=== PATIENT | male | born 1960 | race Caucasian/White ===

== ENCOUNTER 2018-07-22 08:58 | Emergency (ER) | payer MEDICAID, OTHER ==
[~2018-07-22] VITALS: Ht 165.1 cm; Wt 90.7 kg
--- OUTSIDE RECORDS SUMMARY | 2018-07-22 09:04 | XMS REPORT ---
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 Problem Proteinuria 791.0 Active Problem Unspecified orchitis and epididymitis 604.90 Active Problem Unspecified disorder of male genital organs 608.9 Active Problem Other and unspecified hyperlipidemia 272.4 Active Problem Unspecified hypertrophic and atrophic condition of skin 701.9 Active Problem Unspecified disorder of the teeth and supporting structures 525.9 Active Problem Routine general medical examination at health care facility V70.0 Active Problem Other chronic pain 338.29 Active Problem Pain in joint, shoulder region 719.41 Active Problem Gout, unspecified 274.9 Active Medications No Known Medications Results No Known Results Summary Purpose [employer] Submission
--- OUTSIDE RECORDS SUMMARY | 2018-07-22 09:05 | XMS REPORT | Continuity of Care Document ---
Author Author [facility] Address Unknown Phone Unavailable Allergies There is no data. Medications Medication Packaging Start Date Stop Date Route Dosage Sig DULoxetine HCl 60 MG Oral Capsule Delayed Release Particles 01/08/2015 03/10/2015 ORAL 60MG Latuda 120 MG Oral Tablet 201403/10/2015 ORAL 120MG TraZODone HCl 150 MG Oral Tablet 01/08/2015 03/10/2015 ORAL 150MG DULoxetine HCl 60 MG Oral Capsule Delayed Release Particles 03/05/2015 05/05/2015 ORAL 60MG Latuda 120 MG Oral Tablet 201405/05/2015 ORAL 120MG DULoxetine HCl 60 MG Oral Capsule Delayed Release Particles 04/23/2015 06/23/2015 ORAL 60MG Latuda 120 MG Oral Tablet 201406/23/2015 ORAL 120MG Prazosin HCl 1 MG Oral Capsule 06/23/2015 ORAL 1MG ALPRAZolam 2 MG Oral Tablet 04/2306/23/2015 ORAL 2MG DULoxetine HCl 60 MG Oral Capsule Delayed Release Particles 06/24/2015 08/24/2015 ORAL 60MG Latuda 120 MG Oral Tablet 201508/24/2015 ORAL 120MG Prazosin HCl 1 MG Oral Capsule 08/24/2015 ORAL 1MG ALPRAZolam 2 MG Oral Tablet 06/2408/24/2015 ORAL 2MG DULoxetine HCl 60 MG Oral Capsule Delayed Release Particles 07/16/2015 10/15/2015 ORAL 60MG Latuda 120 MG Oral Tablet 201510/15/2015 ORAL 120MG Prazosin HCl 1 MG Oral Capsule 10/15/2015 ORAL 1MG ALPRAZolam 2 MG Oral Tablet 07/1509/15/2015 ORAL 2MG Prazosin HCl 1 MG Oral Capsule 11/21/2015 ORAL 1MG DULoxetine HCl 60 MG Oral Capsule Delayed Release Particles 10/22/2015 11/22/2015 ORAL 60MG Latuda 120 MG Oral Tablet 201511/22/2015 ORAL 120MG ALPRAZolam 2 MG Oral Tablet 10/2111/22/2015 ORAL 2MG Prazosin HCl 1 MG Oral Capsule 11/22/2015 ORAL 1MG DULoxetine HCl 60 MG Oral Capsule Delayed Release Particles 11/04/2015 02/03/2016 ORAL 60MG Latuda 120 MG Oral Tablet 201502/03/2016 ORAL 120MG Latuda 40 MG Oral Tablet 201503/04/2016 ORAL 40MG ALPRAZolam 2 MG Oral Tablet 11/0302/03/2016 ORAL 2MG Prazosin HCl 1 MG Oral Capsule 02/03/2016 ORAL 1MG Latuda 120 MG Oral Tablet 201503/03/2016 ORAL 120MG DULoxetine HCl 60 MG Oral Capsule Delayed Release Particles 02/01/2016 03/03/2016 ORAL 60MG ALPRAZolam 2 MG Oral Tablet 01/3103/03/2016 ORAL 2MG Prazosin HCl 1 MG Oral Capsule 03/03/2016 ORAL 1MG Latuda 120 MG Oral Tablet 201607/22/2016 ORAL 120MG DULoxetine HCl 60 MG Oral Capsule Delayed Release Particles 06/21/2016 07/22/2016 ORAL 60MG TraZODone HCl 100 MG Oral Tablet 06/21/2016 07/22/2016 ORAL 100MG Prazosin HCl 1 MG Oral Capsule 07/22/2016 ORAL 1MG Latuda 120 MG Oral Tablet 201608/19/2016 ORAL 120MG DULoxetine HCl 60 MG Oral Capsule Delayed Release Particles 07/19/2016 08/19/2016 ORAL 60MG TraZODone HCl 100 MG Oral Tablet 07/19/2016 08/19/2016 ORAL 100MG Prazosin HCl 1 MG Oral Capsule 08/19/2016 ORAL 1MG Latuda 120 MG Oral Tablet 201610/02/2016 ORAL 120MG DULoxetine HCl 60 MG Oral Capsule Delayed Release Particles 09/01/2016 10/02/2016 ORAL 60MG TraZODone HCl 100 MG Oral Tablet 09/01/2016 10/02/2016 ORAL 100MG Prazosin HCl 1 MG Oral Capsule 12/01/2016 ORAL 1MG Latuda 120 MG Oral Tablet 201610/09/2016 ORAL 120MG DULoxetine HCl 60 MG Oral Capsule Delayed Release Particles 09/08/2016 10/09/2016 ORAL 60MG TraZODone HCl 100 MG Oral Tablet 09/08/2016 10/09/2016 ORAL 100MG Latuda 120 MG Oral Tablet 201601/05/2017 ORAL 120MG DULoxetine HCl 60 MG Oral Capsule Delayed Release Particles 10/06/2016 01/05/2017 ORAL 60MG CloNIDine HCl 0.1 MG Oral Tablet 10/06/2016 01/05/2017 ORAL 0.1MG TraZODone HCl 100 MG Oral Tablet 10/06/2016 01/05/2017 ORAL 100MG ALPRAZolam 1 MG Oral Tablet 10/1701/16/2017 ORAL 1MG TraZODone HCl 100 MG Oral Tablet 11/01/2016 01/31/2017 ORAL 100MG Latuda 120 MG Oral Tablet 201602/16/2017 ORAL 120MG DULoxetine HCl 60 MG Oral Capsule Delayed Release Particles 11/17/2016 02/16/2017 ORAL 60MG CloNIDine HCl 0.1 MG Oral Tablet 11/17/2016 02/16/2017 ORAL 0.1MG TraZODone HCl 100 MG Oral Tablet 11/17/2016 02/16/2017 ORAL 100MG ALPRAZolam 1 MG Oral Tablet 11/1702/16/2017 ORAL 1MG Latuda 40 MG Oral Tablet 201602/21/2017 ORAL 40MG Ziprasidone HCl 80 MG Oral Capsule 04/03/2017 06/03/2017 ORAL 80MG ALPRAZolam 1 MG Oral Tablet 04/0307/03/2017 ORAL 1MG CloNIDine HCl 0.1 MG Oral Tablet 04/03/2017 07/03/2017 ORAL 0.1MG DULoxetine HCl 60 MG Oral Capsule Delayed Release Particles 04/03/2017 07/03/2017 ORAL 60MG Ziprasidone HCl 80 MG Oral Capsule 05/12/2017 06/12/2017 ORAL 80MG Ziprasidone HCl 80 MG Oral Capsule 06/12/2017 07/13/2017 ORAL 80MG ALPRAZolam 1 MG Oral Tablet 10/0911/09/2017 ORAL 1MG DULoxetine HCl 60 MG Oral Capsule Delayed Release Particles 10/09/2017 11/09/2017 ORAL 60MG TraZODone HCl 100 MG Oral Tablet 10/09/2017 11/09/2017 ORAL 100MG Ziprasidone HCl 80 MG Oral Capsule 10/09/2017 11/09/2017 ORAL 80MG CloNIDine HCl 0.1 MG Oral Tablet 10/09/2017 11/09/2017 ORAL 0.1MG ALPRAZolam 2 MG Oral Tablet 10/1101/10/2018 ORAL 2MG DULoxetine HCl 60 MG Oral Capsule Delayed Release Particles 10/11/2017 01/10/2018 ORAL 60MG TraZODone HCl 300 MG Oral Tablet 10/11/2017 01/10/2018 ORAL 300MG Ziprasidone HCl 80 MG Oral Capsule 10/11/2017 01/10/2018 ORAL 80MG CloNIDine HCl 0.2 MG Oral Tablet 10/11/2017 01/10/2018 ORAL 0.2MG ALPRAZolam 2 MG Oral Tablet 12/1403/15/2018 ORAL 2MG DULoxetine HCl 60 MG Oral Capsule Delayed Release Particles 12/14/2017 03/15/2018 ORAL 60MG TraZODone HCl 300 MG Oral Tablet 12/14/2017 03/15/2018 ORAL 300MG Ziprasidone HCl 80 MG Oral Capsule 12/14/2017 03/15/2018 ORAL 80MG CloNIDine HCl 0.2 MG Oral Tablet 12/14/2017 03/15/2018 ORAL 0.2MG Problems Date Dx Coded Attending Type Code Diagnosis Diagnosed By 08/15/2012 SHAKIRA CHONG MD 608.9 UNSPECIFIED DISORDER OF MALE GENITAL ORGANS 08/15/2012 SHAKIRA CHONG MD 791.0 PROTEINURIA 08/15/2012 HARSHAL RODRÍGUEZ MD 608.9 UNSPECIFIED DISORDER OF MALE GENITAL ORGANS 08/15/2012 HARSHAL RODRÍGUEZ MD 791.0 PROTEINURIA 08/15/2012 ACE ECHOLS APRN 608.9 UNSPECIFIED DISORDER OF MALE GENITAL ORGANS 08/15/2012 ACE ECHOLS APRN 791.0 PROTEINURIA 08/15/2012 SHAKIRA CHONG MD 608.9 UNSPECIFIED DISORDER OF MALE GENITAL ORGANS 08/15/2012 SHAKIRA CHONG MD 791.0 PROTEINURIA 08/15/2012 ACE ECHOLS APRN 608.9 UNSPECIFIED DISORDER OF MALE GENITAL ORGANS 08/15/2012 ACE ECHOLS APRN 791.0 PROTEINURIA 08/15/2012 LEIDY FARIAS APRN 608.9 UNSPECIFIED DISORDER OF MALE GENITAL ORGANS 08/15/2012 LEIDY FARIAS APRN 791.0 PROTEINURIA 08/15/2012 608.9 UNSPECIFIED DISORDER OF MALE GENITAL ORGANS 08/15/2012 791.0 PROTEINURIA 08/15/2012 RINA WORKMAN 608.9 UNSPECIFIED DISORDER OF MALE GENITAL ORGANS 08/15/2012 RINA WORKMAN 791.0 PROTEINURIA 09/04/2012 SHAKIRA CHONG MD 525.9 UNSPECIFIED DISORDER OF THE TEETH AND SUPPORTING STRUCTURES 09/04/2012 HARSHAL RODRÍGUEZ MD 525.9 UNSPECIFIED DISORDER OF THE TEETH AND SUPPORTING STRUCTURES 09/04/2012 ACE ECHOLS APRN 525.9 UNSPECIFIED DISORDER OF THE TEETH AND SUPPORTING STRUCTURES 09/04/2012 SHAKIRA CHONG MD 525.9 UNSPECIFIED DISORDER OF THE TEETH AND SUPPORTING STRUCTURES 09/04/2012 ACE ECHOLS APRN 525.9 UNSPECIFIED DISORDER OF THE TEETH AND SUPPORTING STRUCTURES 09/04/2012 LEIDY FARIAS APRN 525.9 UNSPECIFIED DISORDER OF THE TEETH AND SUPPORTING STRUCTURES 09/04/2012 525.9 UNSPECIFIED DISORDER OF THE TEETH AND SUPPORTING STRUCTURES 09/04/2012 RINA WORKMAN 525.9 UNSPECIFIED DISORDER OF THE TEETH AND SUPPORTING STRUCTURES 09/12/2012 SHAKIRA CHONG MD 604.90 ORCHITIS AND EPIDIDYMITIS UNSPECIFIED 09/12/2012 HARSHAL RODRÍGUEZ MD 604.90 ORCHITIS AND EPIDIDYMITIS UNSPECIFIED 09/12/2012 ACE ECHOLS APRN 604.90 ORCHITIS AND EPIDIDYMITIS UNSPECIFIED 09/12/2012 SHAKIRA CHONG MD 604.90 ORCHITIS AND EPIDIDYMITIS UNSPECIFIED 09/12/2012 ACE ECHOLS APRN 604.90 ORCHITIS AND EPIDIDYMITIS UNSPECIFIED 09/12/2012 LEIDY FARIAS APRN 604.90 ORCHITIS AND EPIDIDYMITIS UNSPECIFIED 09/12/2012 604.90 ORCHITIS AND EPIDIDYMITIS UNSPECIFIED 09/12/2012 RINA WORKMAN 604.90 ORCHITIS AND EPIDIDYMITIS UNSPECIFIED 11/15/2012 SHAKIRA CHONG MD 706.2 SEBACEOUS CYST 11/15/2012 HARSHAL RODRÍGUEZ MD 706.2 SEBACEOUS CYST 11/15/2012 ACE ECHOLS APRN 706.2 SEBACEOUS CYST 11/15/2012 SHAKIRA CHONG MD 706.2 SEBACEOUS CYST 11/15/2012 ACE ECHOLS APRN 706.2 SEBACEOUS CYST 11/15/2012 LEIDY FARIAS APRN 706.2 SEBACEOUS CYST 11/15/2012 706.2 SEBACEOUS CYST 11/15/2012 RINA WORKMAN 706.2 SEBACEOUS CYST 12/13/2012 SHAKIRA CHONG MD 955.2 INJURY TO ULNAR NERVE 12/13/2012 HARSHAL RODRÍGUEZ MD 955.2 INJURY TO ULNAR NERVE 12/13/2012 ACE ECHOLS APRN 955.2 INJURY TO ULNAR NERVE 12/13/2012 SHAKIRA CHONG MD 955.2 INJURY TO ULNAR NERVE 12/13/2012 ACE ECHOLS APRN 955.2 INJURY TO ULNAR NERVE 12/13/2012 LEIDY FARIAS APRN 955.2 INJURY TO ULNAR NERVE 12/13/2012 955.2 INJURY TO ULNAR NERVE 12/13/2012 RINA WORKMAN 955.2 INJURY TO ULNAR NERVE 02/06/2013 SHAKIRA CHONG MD 338.29 OTHER CHRONIC PAIN 02/06/2013 ACE ECHOLS APRN 338.29 OTHER CHRONIC PAIN 02/06/2013 LEIDY FARIAS APRN 338.29 OTHER CHRONIC PAIN 02/06/2013 338.29 OTHER CHRONIC PAIN 02/06/2013 RINA WORKMAN 338.29 OTHER CHRONIC PAIN 02/12/2013 ACE ECHOLS APRN V70.0 ROUTINE GENERAL MEDICAL EXAMINATION AT A HEALTH CARE FACILITY 02/12/2013 SHAKIRA CHONG MD V70.0 ROUTINE GENERAL MEDICAL EXAMINATION AT A HEALTH CARE FACILITY 02/12/2013 ACE ECHOLS APRN V70.0 ROUTINE GENERAL MEDICAL EXAMINATION AT A HEALTH CARE FACILITY 02/12/2013 LEIDY FARIAS APRN V70.0 ROUTINE GENERAL MEDICAL EXAMINATION AT A HEALTH CARE FACILITY 02/12/2013 V70.0 ROUTINE GENERAL MEDICAL EXAMINATION AT A HEALTH CARE FACILITY 02/12/2013 RINA WORKMAN V70.0 ROUTINE GENERAL MEDICAL EXAMINATION AT A HEALTH CARE FACILITY 02/14/2013 SHAKIRA CHONG MD 701.9 UNSPECIFIED HYPERTROPHIC AND ATROPHIC CONDITIONS OF SKIN 02/14/2013 ACE ECHOLS APRN 701.9 UNSPECIFIED HYPERTROPHIC AND ATROPHIC CONDITIONS OF SKIN 02/14/2013 LEIDY FARIAS APRN 701.9 UNSPECIFIED HYPERTROPHIC AND ATROPHIC CONDITIONS OF SKIN 02/14/2013 701.9 UNSPECIFIED HYPERTROPHIC AND ATROPHIC CONDITIONS OF SKIN 02/14/2013 RINA WORKMAN 701.9 UNSPECIFIED HYPERTROPHIC AND ATROPHIC CONDITIONS OF SKIN 03/05/2013 SHAKIRA CHONG MD 272.4 HYPERLIPIDEMIA 03/05/2013 ACE ECHOLS APRN 272.4 HYPERLIPIDEMIA 03/05/2013 LEIDY FARIAS APRN 272.4 HYPERLIPIDEMIA 03/05/2013 272.4 HYPERLIPIDEMIA 03/05/2013 RINA WORKMAN 272.4 HYPERLIPIDEMIA 03/12/2013 PRIYANKA ECHOLS APRNA 354.0 CARPAL TUNNEL SYNDROME 03/12/2013 FRANK FARIAS APRNA 354.0 CARPAL TUNNEL SYNDROME 03/12/2013 354.0 CARPAL TUNNEL SYNDROME 03/12/2013 RINA WORKMAN 354.0 CARPAL TUNNEL SYNDROME 11/04/2013 LEIDY FARIAS APRN 719.41 PAIN IN JOINT INVOLVING SHOULDER REGION 11/04/2013 719.41 PAIN IN JOINT INVOLVING SHOULDER REGION 11/04/2013 RINA WORKMAN 719.41 PAIN IN JOINT INVOLVING SHOULDER REGION 08/27/2014 RINA WORKMAN 274.9 GOUT UNSPECIFIED 08/27/2014 RINA WORKMAN [id number] [facility] 02/06/2015 F 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, recurrent, severe with psychotic symptoms [facility] 02/06/2015 F F43.10 Post- traumatic stress disorder, unspecified [facility] 03/18/2015 F 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, recurrent, severe with psychotic symptoms [facility] 03/18/2015 F F43.10 Post- traumatic stress disorder, unspecified [facility] 06/18/2015 F 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, recurrent, severe with psychotic symptoms [facility] 06/18/2015 F F43.10 Post- traumatic stress disorder, unspecified [facility], [facility] 06/18/2015 F F43.10 Post- traumatic stress disorder, unspecified [facility], [facility] 10/19/2015 F 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, recurrent, severe with psychotic symptoms [facility] , [facility] 10/19/2015 F F43.10 Post- traumatic stress disorder, unspecified [facility], [facility] 04/20/2016 F 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, recurrent, severe with psychotic symptoms [facility] 04/20/2016 F F43.10 Post- traumatic stress disorder, unspecified [facility] Procedures Code Description [place] [address] CMP (COMPREHENSIVE METABOLIC PANEL) 02/12/2013 60431 LIPID PANEL (OUTSIDE LAB) 02/12/2013 24434 TSH w/ REFLEX T4 FREE 02/12/2013 86807 URIC ACID, SERUM 02/12/2013 60950 CBC, COMPLETE, W/AUTO DIFF WBC 02/12/2013 82637 SKIN TAG REM 1-15 02/14/2013 56823 NO CHARGE 08/27/2014 Results There is no data. Encounters ACCT No. Visit Date/Time Discharge Status Pt. Type Provider Facility Loc./Unit Complaint [id number] 08/27/2014 15:09:00 08/27/2014 23:59:59 CLS Outpatient AVERYRINA BARROW [id number] 11/12/2013 09:59:00 11/12/2013 23:59:59 CLS Outpatient [id number] 11/04/2013 10:58:00 11/04/2013 23:59:59 CLS Outpatient LEIDY FARIAS APRN [id number] 03/12/2013 13:51:00 03/12/2013 23:59:59 CLS Outpatient ACE ECHOLS APRN [id number] 02/14/2013 10:05:00 02/14/2013 23:59:59 [place] [id number] 02/12/2013 13:59:00 02/12/2013 23:59:59 CLS Outpatient ACE ECHOLS APRN [id number] 02/06/2013 12:13:00 02/06/2013 23:59:59 CLS [place]patient [place] [id number] 12/13/2012 14:26:00 12/13/2012 23:59:59 CLS Outpatient SHAKIRA CHONG MD [id number] 04/25/2018 22:41:42 Document Registration [id number] 04/25/2018 22:41:39 Document Registration [id number] 04/25/2018 22:41:35 Document Registration [id number] 04/25/2018 22:41:31 Document Registration [id number] 04/25/2018 22:41:26 Document Registration [id number] 04/25/2018 22:41:22 Document Registration [id number] 04/25/2018 22:41:17 Document Registration [id number] 04/25/2018 22:39:26 Document Registration [id number] 04/25/2018 22:39:22 Document Registration [id number] 04/25/2018 22:39:18 Document Registration [id number] 04/25/2018 22:39:13 Document Registration [id number] 04/25/2018 22:39:09 Document Registration [id number] 04/25/2018 22:39:05 Document Registration [id number] 04/25/2018 22:39:01 Document Registration [id number] 04/25/2018 22:38:57 Document Registration [id number] 04/25/2018 22:38:52 Document Registration [id number] 01/07/2018 04:14:07 Document Registration [id number] 01/06/2018 02:26:57 Document Registration [id number] 01/06/2018 01:45:28 Document Registration [id number] 12/17/2017 05:08:51 Document Registration [id number] 12/14/2017 12:20:18 Document Registration [id number] 12/14/2017 12:19:43 Document Registration [id number] 12/14/2017 12:19:39 Document Registration [id number] 12/14/2017 12:19:35 Document Registration [id number] 12/14/2017 12:17:54 Document Registration [id number] 12/14/2017 12:17:50 Document Registration [id number] 12/14/2017 12:17:46 Document Registration [id number] 12/14/2017 12:17:42 Document Registration [id number] 12/14/2017 12:17:38 Document Registration [id number] 12/10/2017 05:07:35 Document Registration [id number] 12/10/2017 05:06:49 Document Registration [id number] 12/09/2017 04:58:38 Document Registration [id number] 10/11/2017 14:53:02 Document Registration [id number] 10/11/2017 14:52:59 Document Registration [id number] 10/11/2017 14:51:21 Document Registration [id number] 10/11/2017 14:50:45 Document Registration [id number] 10/11/2017 14:47:33 Document Registration [id number] 10/09/2017 13:32:25 Document Registration [id number] 10/09/2017 13:31:19 Document Registration [id number] 10/09/2017 13:29:43 Document Registration [id number] 10/09/2017 13:29:40 Document Registration [id number] 10/09/2017 13:29:35 Document Registration [id number] 08/12/2017 04:48:09 Document Registration [id number] 08/06/2017 04:52:58 Document Registration [id number] 08/05/2017 04:49:25 Document Registration [id number] 07/02/2017 04:56:56 Document Registration [id number] 06/12/2017 12:48:07 Document Registration [id number] 05/12/2017 11:42:38 Document Registration [id number] 05/07/2017 05:15:30 Document Registration [id number] 04/09/2017 05:12:02 Document Registration [id number] 04/09/2017 05:07:25 Document Registration [id number] 04/03/2017 11:02:53 Document Registration [id number] 04/03/2017 11:01:17 Document Registration [id number] 04/03/2017 11:01:13 Document Registration [id number] 04/03/2017 11:01:10 Document Registration [id number] 03/18/2017 04:57:50 Document Registration [id number] 03/18/2017 04:46:14 Document Registration [id number] 03/18/2017 04:42:54 Document Registration [id number] 03/04/2017 04:56:14 Document Registration [id number] 02/04/2017 04:50:02 Document Registration [id number] 02/04/2017 04:49:59 Document Registration [id number] 02/04/2017 04:27:10 Document Registration [id number] 01/21/2017 04:56:57 Document Registration [id number] 11/22/2016 13:58:16 Document Registration [id number] 11/17/2016 10:26:57 Document Registration [id number] 11/17/2016 10:26:53 Document Registration [id number] 11/17/2016 10:26:50 Document Registration [id number] 11/17/2016 10:26:47 Document Registration [id number] 11/17/2016 10:26:44 Document Registration [id number] 11/07/2016 04:56:03 Document Registration [id number] 11/07/2016 04:53:17 Document Registration [id number] 11/07/2016 04:41:49 Document Registration [id number] 11/01/2016 10:34:12 Document Registration [id number] 10/31/2016 04:59:26 Document Registration [id number] 10/31/2016 04:57:09 Document Registration [id number] 10/31/2016 04:45:55 Document Registration [id number] 10/31/2016 04:41:10 Document Registration [id number] 10/17/2016 14:32:04 Document Registration [id number] 10/06/2016 13:26:51 Document Registration [id number] 10/06/2016 13:24:42 Document Registration [id number] 10/06/2016 13:24:39 Document Registration [id number] 10/06/2016 13:24:36 Document Registration [id number] 09/17/2016 04:50:03 Document Registration [id number] 09/17/2016 04:46:22 Document Registration [id number] 09/17/2016 04:37:43 Document Registration [id number] 09/17/2016 04:35:14 Document Registration [id number] 09/08/2016 09:59:07 Document Registration [id number] 09/08/2016 09:59:04 Document Registration [id number] 09/08/2016 09:59:01 Document Registration [id number] 09/01/2016 15:31:20 Document Registration [id number] 09/01/2016 14:32:39 Document Registration [id number] 09/01/2016 14:32:35 Document Registration [id number] 09/01/2016 14:32:32 Document Registration [id number] 09/01/2016 14:32:30 Document Registration [id number] 08/20/2016 04:55:57 Document Registration [id number] 08/20/2016 04:51:32 Document Registration [id number] 08/20/2016 04:46:46 Document Registration [id number] 08/20/2016 04:45:03 Document Registration [id number] 07/19/2016 09:24:02 Document Registration [id number] 07/19/2016 09:23:59 Document Registration [id number] 07/19/2016 09:23:57 Document Registration [id number] 07/19/2016 09:23:54 Document Registration [id number] 06/21/2016 15:28:32 Document Registration [id number] 06/21/2016 15:26:55 Document Registration [id number] 06/21/2016 15:24:15 Document Registration [id number] 06/21/2016 15:24:12 Document Registration [id number] 04/02/2016 04:54:57 Document Registration [id number] 04/01/2016 04:44:01 Document Registration [id number] 04/01/2016 04:39:27 Document Registration [id number] 04/01/2016 04:39:24 Document Registration [id number] 04/01/2016 04:37:42 Document Registration [id number] 03/03/2016 05:02:49 Document Registration [id number] 03/03/2016 05:00:30 Document Registration [id number] 03/03/2016 04:58:50 Document Registration [id number] 03/03/2016 04:46:25 Document Registration [id number] 02/08/2016 10:16:07 Document Registration [id number] 02/08/2016 10:16:02 Document Registration [id number] 02/08/2016 10:10:55 Document Registration [id number] 02/08/2016 10:10:39 Document Registration [id number] 12/21/2015 15:44:54 Document Registration [id number] 12/21/2015 15:44:52 Document Registration [id number] 12/21/2015 15:43:55 Document Registration [id number] 12/21/2015 15:41:33 Document Registration [id number] 12/21/2015 15:40:15 Document Registration [id number] 11/13/2015 04:46:33 Document Registration [id number] 11/13/2015 04:44:07 Document Registration [id number] 11/13/2015 04:29:44 Document Registration [id number] 11/13/2015 04:28:36 Document Registration [id number] 11/04/2015 09:38:21 Document Registration [id number] 11/04/2015 09:35:10 Document Registration [id number] 11/04/2015 09:35:08 Document Registration [id number] 11/04/2015 09:35:06 Document Registration [id number] 11/04/2015 09:35:03 Document Registration [id number] 10/22/2015 14:56:23 Document Registration [id number] 10/22/2015 14:56:22 Document Registration [id number] 10/22/2015 14:56:19 Document Registration [id number] 10/22/2015 14:56:17 Document Registration [id number] 10/21/2015 17:38:42 Document Registration [id number] 09/22/2015 04:42:34 Document Registration [id number] 09/22/2015 04:39:15 Document Registration [id number] 09/22/2015 04:31:54 Document Registration [id number] 09/22/2015 04:29:08 Document Registration [id number] 07/22/2015 04:44:32 Document Registration [id number] 07/22/2015 04:42:50 Document Registration [id number] 07/22/2015 04:36:45 Document Registration [id number] 07/22/2015 04:35:01 Document Registration [id number] 07/16/2015 14:41:38 Document Registration [id number] 07/16/2015 14:41:35 Document Registration [id number] 07/16/2015 14:41:34 Document Registration [id number] 07/16/2015 14:41:32 Document Registration [id number] 07/16/2015 14:39:03 Document Registration [id number] 07/16/2015 14:39:00 Document Registration [id number] 07/16/2015 14:38:56 Document Registration [id number] 07/16/2015 14:38:54 Document Registration [id number] 07/16/2015 14:38:53 Document Registration [id number] 07/16/2015 14:38:50 Document Registration [id number] 07/16/2015 14:38:47 Document Registration [id number] 07/16/2015 14:38:41 Document Registration [id number] 07/16/2015 14:38:31 Document Registration [id number] 07/16/2015 14:38:25 Document Registration [id number] 07/16/2015 14:38:23 Document Registration [id number] 07/16/2015 14:38:21 Document Registration [id number] 07/16/2015 14:38:01 Document Registration [id number] 07/16/2015 14:37:54 Document Registration [id number] 10/25/2012 00:00:00 Document Registration
--- NOTE | 2018-07-22 09:16 | ED Integumentary General ---
General Chief Complaint: Skin/Wound Problems Stated Complaint: DIAGNOSED WITH SCABIES LAST WKND - NOT BETTER History of Present Illness Date Seen by Provider: Jul 22, 2018 Time Seen by Provider: 09:02 Initial Comments 57-year-old white male with history of recurrent rash over the last month. He states he was seen at [place] and diagnosed with scabies. He has been using an ointment without any improvement. He is repeatedly washed his clothes. He is staying with a friend and believes that he has contracted this from his friend' s dog. He states he plans on moving to get away from this environment. He has had a rash in his groin which persist and has had rash on his trunk which he states is dramatically improved. Has history of hypertension but has not been taking medications recently. Denies other medical problems. No other likely exposures reported. He is not had any fever, chills, or purulent drainage. Timing/Duration: constant Allergies and Home Medications Patient Home Medication List Home Medication List Reviewed: Yes Review of Systems Review of Systems Constitutional: other (generalized pruritus) EENTM: see HPI Respiratory: no symptoms reported Gastrointestinal: no symptoms reported Genitourinary: no symptoms reported Musculoskeletal: no symptoms reported Skin: see HPI Psychiatric/Neurological: No Symptoms Reported Endocrine: No Symptoms Reported Hematologic/Lymphatic: No Symptoms Reported Past Niiykdz-Agkedc-Bnusop Hx Past Med/Social Hx: Reviewed Nursing Past Med/Soc Hx Patient Social History Recent Foreign Travel: No (N) Contact w/Someone Who Travel: No (N) Physical Exam Vital Signs Capillary Refill : General Appearance: WD/WN, no apparent distress HEENT: PERRL/EOMI, normal ENT inspection, TMs normal, pharynx normal; No scleral icterus (R) Neck: non-tender, full range of motion, supple, normal inspection Cardiovascular: normal peripheral pulses, regular rate, rhythm, no edema, no gallop, no JVD, no murmur Respiratory: chest non-tender, lungs clear, normal breath sounds, no respiratory distress, no accessory muscle use Gastrointestinal: normal bowel sounds, non tender, soft, no organomegaly, no pulsatile mass Back: normal inspection, no CVA tenderness, no vertebral tenderness Extremities: normal range of motion, non-tender, normal inspection, no pedal edema, no calf tenderness, normal capillary refill, pelvis stable Neurologic/Psychiatric: 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 More confluent and his inguinal areas bilaterally. No evidence of surrounding induration other than local irritation.) Skin Problem Location: generalized Skin Problem Character: erythema Lymphatic: no adenopathy Progress/Results/Core Measures Progress Progress Note : Time: 09:15 Progress Note Since due to the large area of involvement and likely incomplete treatment, will use Kwell shampoo with precautions concerning use. He understands and accepts this. Departure Impression Primary Impression: Scabies infestation Disposition: HOME, SELF-CARE Condition: Stable Departure-Patient Inst. Decision time for Depature: 09:14 Referrals: NO,LOCAL PHYSICIAN (PCP) Primary Care Physician 2-3 days, sooner as needed Patient Instructions: Scabies (DC) Scripts [atarax] No Conflict Check 25 MG PO Q6H PRN for ITCHING AND RASH, #30 CAP Prov: TOMMIE DUDLEY MD 07/22/18 [kwell] No Conflict Check APPLIC TOP BID for Rash, #120 ML 1 Refill Prov: TOMMIE DUDLEY MD 07/22/18 TOMMIE DUDLEY MD Jul 22, 2018 09:16
[2018-07-22] MEDS ORDERED: atarax PO (09:19)
[2018-07-22] MEDS ORDERED: KWELL TOP (09:19)
[2018-07-22 09:23] VITALS: BP 128/89
== END 2018-07-22 09:23 | disposition home or self-care (01) ==
LOC: ER FS 09:00
DX: B86 Scabies (principal); I10 Essential (primary) hypertension
CPT/HCPCS: 99282

== ENCOUNTER 2018-09-03 12:19 | Emergency (ER) | payer MEDICAID ==
[~2018-09-03] VITALS: Ht 165.1 cm; Wt 90.3 kg
[~2018-09-03 12:19] MED LIST: KWELL TOP; atarax PO
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
[2018-09-03] MEDS ORDERED: SILV25CR21 TP (13:39)
[2018-09-03] MEDS ORDERED: OXYC-471 PO (13:39)
[2018-09-03] MEDS ORDERED: SILVER SULFADIAZINE 50 GM CREAM ONE (13:55)
[2018-09-03 14:10] VITALS: BP 146/96
[2018-09-04] MEDS ORDERED: SILVER SULFADIAZINE 50 GM CREAM TOP SCH (09:00)
== END 2018-09-03 14:10 | disposition home or self-care (01) ==
LOC: EDUNIT# 12:19 → ER FS 12:21
DX: T23.001A Burn of unspecified degree of right hand, unspecified site, initial encounter (principal); T31.0 Burns involving less than 10% of body surface; I10 Essential (primary) hypertension; F17.200 Nicotine dependence, unspecified, uncomplicated; X58.XXXA Exposure to other specified factors, initial encounter
CPT/HCPCS: 99283

== ENCOUNTER 2020-06-20 00:16 | Emergency (ER) | payer MEDICAID ==
[~2020-06-20] VITALS: Ht 167.7 cm; Wt 82.0 kg
[~2020-06-20 00:16] MED LIST changes: +OXYC1TAB11 PO; +SILV25CR21 TP
[2020-06-20] MEDS ORDERED: morphine INJ 10 MG/ML 1ML (SYR OR VIAL) IVP STA ×2 (00:32→03:15)
[2020-06-20 00:43] LABS: BASOPHILS # (AUTO) 0.1 10^3/uL (0.0-0.1); BASOPHILS % (AUTO) 0 % (0-10); EOSINOPHILS % (AUTO) 0 % (0-10); HEMATOCRIT 48 % (40-54); HEMOGLOBIN 16.6 G/DL (13.3-17.7); LYMPHOCYTES # (AUTO) 1.1 X 10^3 (1.0-4.0); LYMPHOCYTES % (AUTO) 4 % (12-44); MEAN CORPUSCULAR HEMOGLOBIN 30 PG (25-34); MEAN CORPUSCULAR HGB CONC 35 G/DL (32-36); MEAN CORPUSCULAR VOLUME 87 FL (80-99); MEAN PLATELET VOLUME 9.2 FL (7.4-10.4); MONOCYTES % (AUTO) 8 % (0-12); NEUTROPHILS # (AUTO) 23.5 X 10^3 (1.8-7.8); NEUTROPHILS % (AUTO) 88 % (42-75); PLATELET COUNT 352 10^3/uL (130-400); WHITE BLOOD COUNT 26.9 10^3/uL (4.3-11.0)
[2020-06-20] MEDS ORDERED: ONDANSETRON 4 MG/2 ML (SDV) Z0FRAN IVP ONE ×2 (00:45→03:15)
[2020-06-20 00:48] VITALS: BP 142/91
[2020-06-20 01:04] LABS: SODIUM 138 MMOL/L (135-145)
[2020-06-20 01:05] LABS: ALANINE AMINOTRANSFERASE 290 U/L (0-55); ALBUMIN 4.7 GM/DL (3.2-4.5); ALKALINE PHOSPHATASE 175 U/L (40-136); BILIRUBIN,TOTAL 2.4 MG/DL (0.1-1.0); BUN/CREATININE RATIO 24; CALCIUM 9.9 MG/DL (8.5-10.1); CARBON DIOXIDE 26 MMOL/L (21-32); CHLORIDE 99 MMOL/L (98-107); CREATININE SERUM 1.01 MG/DL (0.60-1.30); GFR ESTIMATED > 60; GLUCOSE 144 MG/DL (70-105); TOTAL PROTEIN 8.1 GM/DL (6.4-8.2)
[2020-06-20 01:08] LABS: POTASSIUM 4.3 MMOL/L (3.6-5.0)
[2020-06-20 01:09] LABS: LIPASE > 9790 U/L (8-78)
[2020-06-20 01:18] LABS: LYMPHOCYTES % (MANUAL) 4 %; MONOCYTES % (MANUAL) 6 %; NEUTROPHILS % (MANUAL) 90 %; POLYCHROMASIA SLIGHT
[2020-06-20 01:19] LABS: SMEAR SCAN COMMENT LRG PLTS; TARGET CELLS SLIGHT; TOXIC GRANULATION/VACUOLAZATIO 4+
[2020-06-20] MEDS ORDERED: NS 100 ML (IVPB) BAG IV ONE (01:30)
[2020-06-20] MEDS ORDERED: CATHETER FLUSH 10 ML SYR IV PRN (01:30)
[2020-06-20] MEDS ORDERED: IOHEXOL 350 MG/ML 100 ML (OMNIPAQUE 350) VIAL IV ONE (01:30)
[2020-06-20] MEDS ORDERED: HOLD METFORMIN - RECEIVED CONTRAST 20 ML VIAL IV SCH (01:30)
[2020-06-20] MEDS ORDERED: NS IV 1000 ML 1,000 ML IV SCH (03:15)
--- NOTE | 2020-06-20 03:29 | ED General ---
General Chief Complaint: Abdominal/GI Problems Stated Complaint: ABDOMINAL PAIN Nursing Triage Note: Patient states that his abdomen started hurting approximately 6 hours [employer]. Patient states that the pain is in the left upper, left lower and lower medial area of the abdomen. Patients abdomen is distended and firm. Patients last BM was yesterday and was diarrhea. Nursing Sepsis Screen: No Definite Risk Source of Information: Patient History of Present Illness Date Seen by Provider: Jun 20, 2020 Time Seen by Provider: 00:30 Initial Comments Patient is a 59-year-old male who presents with acute onset mid epigastric/periumbilical abdominal pain starting approximately 6 hours prior to ED arrival. Patient states pain started left upper quadrants gradually migrated medially. Reports increased abdominal distention, nausea vomiting and decreased flatus. No history of bowel obstruction. Denies fever chills, sweats. No flank pain. Reports back pain. Pain is sharp rated 10 out of 10. Patient did give himself an enema yesterday due to presumed constipation which did not resolve his symptoms. Timing/Duration: 4-6 Hours Severity: Moderate, Severe Associated Systoms: Other Allergies and Home Medications Allergies Coded Allergies: No Known Drug Allergies (Unverified , 09/03/18) Home Medications Oxycodone HCl/Acetaminophen 1 Each Tablet, 1 EACH PO Q4H PRN for PAIN-MODERATE Prescribed by: SHAKIRA TREJO on 09/03/181338 Silver Sulfadiazine 25 Gm Cream..g., 1 APPLIC TP BID Prescribed by: SHAKIRA TREJO on 09/03/181338 [atarax] , 25 MG PO Q6H PRN for ITCHING AND RASH Prescribed by: TOMMIE DUDLEY on 07/22/18918 [[place]] , APPLIC TOP BID Prescribed by: TOMMIE DUDLEY on 07/22/18918 Patient Home Medication List Home Medication List Reviewed: Yes Review of Systems Review of Systems Constitutional: see HPI EENTM: see HPI Respiratory: see HPI Genitourinary: see HPI Musculoskeletal: see HPI Skin: see HPI Psychiatric/Neurological: See HPI Hematologic/Lymphatic: See HPI Immunological/Allergic: see HPI All Other Systems Reviewed Negative Unless Noted: Yes Past Vyofsej-Qfdlxq-Aezqbz Hx Past Med/Social Hx: Reviewed Nursing Past Med/Soc Hx Patient Social History Alcohol Use: Denies Use Drug of Choice: Marijuana Smoking Status: Current Everyday Smoker Type Used: Smokeless Tobacco 2nd Hand Smoke Exposure: No Recent Infectious Disease Expo: No Recent Hopitalizations: No Seasonal Allergies Seasonal Allergies: No Past Medical History Surgeries: Yes Orthopedic Respiratory: No Cardiac: Yes Hypertension Neurological: No Genitourinary: No Gastrointestinal: No Musculoskeletal: No Endocrine: No HEENT: No Cancer: No Psychosocial: No Integumentary: Yes (scabies) Blood Disorders: No Physical Exam Vital Signs Vital Signs - First Documented 06/20/20 00:48 Temp 36.1 Pulse 89 Resp 18 B/P (MAP) 142/91 (108) Pulse Ox 96 O2 Delivery Room Air Capillary Refill : Less Than 3 Seconds Height, Weight, BMI Height: 5'5.00" Weight: 199lbs. 0oz. 90.762417me; 29.00 BMI Method:Stated General Appearance: Moderate Distress Eyes: Bilateral Eye Normal Inspection, Bilateral Eye PERRL, Bilateral Eye EOMI HEENT: PERRL/EOMI, Normal ENT Inspection, Pharynx Normal Neck: Full Range of Motion, Supple Respiratory: Chest Non Tender, Lungs Clear Gastrointestinal: Soft, Abnormal Bowel Sounds, Distended Back: Normal Inspection Extremity: Normal Capillary Refill Neurologic/Psychiatric: Alert, Oriented x3 Focused Exam Sepsis Stage: Ruled Out Progress/Results/Core Measures Suspected Sepsis Recent Fever Within 48 Hours: No Infection Criteria Present: None New/Unexplained Altered Menta: No Sepsis Screen: No Definite Risk SIRS Temperature: Pulse: 89 Respiratory Rate: 18 Laboratory Tests 06/20/20 00:27: White Blood Count 26.9H Blood Pressure 142 /91 Mean: 108 Laboratory Tests 06/20/20 00:27: Creatinine 1.01, Platelet Count 352, Total Bilirubin 2.4H Results/Orders Lab Results Laboratory Tests Test 06/20/20 00:27 Range/Units White Blood Count 26.9 H 4.3-11.0 10^3/uL Red Blood Count 5.55 4.35-5.85 10^6/uL Hemoglobin 16.6 13.3-17.7 G/DL Hematocrit 48 40-54 % Mean Corpuscular Volume 87 80-99 FL Mean Corpuscular Hemoglobin 30 25-34 PG Mean Corpuscular Hemoglobin Concent 35 32-36 G/DL Red Cell Distribution Width 13.0 10.0-14.5 % Platelet Count 352 130-400 10^3/uL Mean Platelet Volume 9.2 7.4-10.4 FL Immature Granulocyte % (Auto) 1 % Neutrophils (%) (Auto) 88 H 42-75 % Lymphocytes (%) (Auto) 4 L 12-44 % Monocytes (%) (Auto) 8 0-12 % Eosinophils (%) (Auto) 0 0-10 % Basophils (%) (Auto) 0 0-10 % Neutrophils # (Auto) 23.5 H 1.8-7.8 X 10^3 Lymphocytes # (Auto) 1.1 1.0-4.0 X 10^3 Monocytes # (Auto) 2.0 H 0.0-1.0 X 10^3 Eosinophils # (Auto) 0.0 0.0-0.3 10^3/uL Basophils # (Auto) 0.1 0.0-0.1 10^3/uL Immature Granulocyte # (Auto) 0.2 H 0.0-0.1 10^3/uL Neutrophils % (Manual) 90 % Lymphocytes % (Manual) 4 % Monocytes % (Manual) 6 % Toxic Granulation 4+ Polychromasia SLIGHT Target Cells SLIGHT Sodium Level 138 135-145 MMOL/L Potassium Level 4.3 3.6-5.0 MMOL/L Chloride Level 99 98-107 MMOL/L Carbon Dioxide Level 26 21-32 MMOL/L Anion Gap 13 5-14 MMOL/L Blood Urea Nitrogen 24 H 7-18 MG/DL Creatinine 1.01 0.60-1.30 MG/DL Estimat Glomerular Filtration Rate > 60 BUN/Creatinine Ratio 24 Glucose Level 144 H 70-105 MG/DL Calcium Level 9.9 8.5-10.1 MG/DL Corrected Calcium 8.5-10.1 MG/DL Total Bilirubin 2.4 H 0.1-1.0 MG/DL Aspartate Amino Transf (AST/SGOT) 434 H 5-34 U/L Alanine Aminotransferase (ALT/SGPT) 290 H 0-55 U/L Alkaline Phosphatase 175 H 40-136 U/L Total Protein 8.1 6.4-8.2 GM/DL Albumin 4.7 H 3.2-4.5 GM/DL Lipase > 9790 H 8-78 U/L Smear Scan [facility] PLTS My Orders Orders - YVONNE COHEN DO Cbc With Automated Diff (06/20/20 00:31) Comprehensive Metabolic Panel (06/20/20 00:31) Lipase (06/20/20 00:31) Ct Abdomen/Pelvis W (06/20/20 00:31) Urinalysis (06/20/20 00:31) Morphine Injection (Morphine Injection (06/20/20 00:32) Ondansetron Injection (Zofran Injectio (06/20/20 00:45) Manual Differential (06/20/20 00:27) Ed Iv/Invasive Line Start (06/20/20 01:11) Iohexol Injection (Omnipaque 350 Mg/Ml 1 (06/20/20 01:30) Received Contrast (Hold Metformin- Contr (06/20/20 01:30) Sodium Chloride Flush (Catheter Flush Sy (06/20/20 01:30) Ns (Ivpb) (Sodium Chloride 0.9% Ivpb Bag (06/20/20 01:30) Morphine Injection (Morphine Injection (06/20/20 03:15) Ondansetron Injection (Zofran Injectio (06/20/20 03:15) Ns Iv 1000 Ml (Sodium Chloride 0.9%) (06/20/20 03:15) Zosyn 4.5 Gm (X1)Ed Only (06/20/20 03:30) Medications Given in ED Current Medications Medications Dose Ordered Sig/Glendy Route Start Time Stop Time Status Last Admin Dose Admin Ondansetron HCl 4 mg ONCE ONCE IVP 06/20/20 00:45 06/20/20 00:46 DC 06/20/20 00:43 4 MG Vital Signs/I&O 06/20/20 00:48 Temp 36.1 Pulse 89 Resp 18 B/P (MAP) 142/91 (108) Pulse Ox 96 O2 Delivery Room Air Capillary Refill : Less Than 3 Seconds Blood Pressure Mean: 108 Departure Communication (Admissions) CT abdomen pelvis: Cholecystitis with dilated CBD and findings of pancreatitis. Patient with gallstone pancreatitis. IV fluids pain medication antibiotics given. Patient accepted to [facility] Impression Primary Impression: Acute gallstone pancreatitis Disposition: [facility]-TRM HOSP Condition: Stable Departure-Patient Inst. Referrals: NO,LOCAL PHYSICIAN (PCP/Family) Primary Care Physician YVONNE COHEN DO Jun 20, 2020 03:28
[2020-06-20] MEDS ORDERED: PIPERACILLIN SODIUM/TAZOBACTAM 4.5 GM in NS (IVPB) 100 ML IV ONE (03:30)
--- NOTE | 2020-06-20 07:08 | Diagnostic Imaging Report ---
PROCEDURE: CT abdomen and pelvis with contrast. TECHNIQUE: Multiple contiguous axial images were obtained through the abdomen and pelvis after administration of intravenous contrast. Auto Exposure Controls were utilized during the CT exam to meet ALARA standards for radiation dose reduction. All CT scans use one or more of the following dose optimizing techniques: automated exposure control, MA and/or KvP adjustment based on patient size and exam type or iterative reconstruction. INDICATION: Abdominal pain FINDINGS: The pancreas is diffusely thickened and there is stranding and edema of the peripancreatic fat consistent with acute pancreatitis. No parenchymal gas or lack of enhancement. There were no findings of organ necrosis. No pseudocyst or other acute fluid collection. The stomach is mildly distended. There is cholelithiasis with the intrahepatic bile ducts nondilated. The extrahepatic common duct measuring 9 mm maximal. No radiopaque choledocholithiasis. The urinary tracts unobstructed. There is no ileus or bowel obstruction. There is no ascites. No free air. There is no appendicitis or diverticulitis. No abdominal pelvic aneurysm, adenopathy or mass. Spleen and adrenals negative. The aorta is nonaneurysmal. IMPRESSION: 1. Features of acute pancreatitis. There is cholelithiasis with mild ectasia of the extrahepatic bile duct but no radiopaque choledocholithiasis. 2. Mild distention of the stomach may reflect recent meal ingestion or delay/difficulties in gastric emptying. 3. No pseudocyst, abscess or other acute fluid collection and there was no ascites. Dictated by: Dictated on workstation # [id number]
== END 2020-06-20 03:54 | disposition left against medical advice (07) ==
LOC: EDUNIT# 00:16 → ER FS 00:19
DX: K85.10 Biliary acute pancreatitis without necrosis or infection (principal); F17.290 Nicotine dependence, other tobacco product, uncomplicated
CPT/HCPCS: 36415; 74177; 80053; 83690; 85007; 85027

== ENCOUNTER 2021-11-17 05:38 | Outpatient (CLI) | payer MEDICAID ==
[~2021-11-17] VITALS: Ht 165.1 cm; Wt 80.7 kg
[2021-11-22] MEDS ORDERED: ROSU40TA23 PO (13:11)
[2021-11-22] MEDS ORDERED: ALLO300T2 PO (13:11)
[2021-11-24] MEDS ORDERED: ACHD5005 PO (12:17)
== END 2021-11-22 13:19 | disposition home or self-care (01) ==
LOC: PREOP 05:38
PROVIDERS: ATTEND Surgery
DX: Z01.818 Encounter for other preprocedural examination (principal)

== ENCOUNTER → 2021-11-24 | Day surgery (SDC) | payer MEDICAID ==
[2021-11-24] VITALS (10 sets, daily range): BP systolic 105–144; BP diastolic 73–95
[~2021-11-24] VITALS: Ht 165 cm; Wt 80.7 kg
[~2021-11-24] MED LIST changes: +ACHD5005 PO; +ALLO300T2 PO; +CITRIC ACID/SOB CIT (BICITRA) 30 ML UDC ONE; +CITRIC ACID/SOB CIT (BICITRA) 30 ML UDC PO ONE; +GLYCOPYRROLATE 0.2 MG/ML (ROBINUL) 2 ML VIAL ONE; +HYDROcodone/APAP 5 MG/325 MG (LORTAB) TAB ONE; +HYDROcodone/APAP 5 MG/325 MG (LORTAB) TAB PO ONE; +HYDROmorphone 2 MG/ML VIAL (DILAUDID) IV ONE; +HYDROmorphone 2 MG/ML VIAL (DILAUDID) ONE; +KETOROLAC 30 MG/ML VIAL ONE; +LIDOCAINE PF 2% 5 ML (XYLOCAINE) VIAL ONE; +LIDOCAINE/EPI 2% 1:100,00 (XYLOCAINE) 20 ML VIAL ONE; +MIDAZOLAM 2 MG/2 ML (VERSED) VIAL ONE; +NEOSTIGMINE (BLOXIVERZ ) 1 MG/1ML 10 ML VIAL ONE; +ONDANSETRON 4 MG/2 ML (SDV) Z0FRAN IVP PRN; +ONDANSETRON 4 MG/2 ML (SDV) Z0FRAN ONE; +ROSU40TA23 PO; +SEVOFLURANE (ULTANE) 15 ML INHAL SOLN ONE; +SUCCINYLCHOLINE INJ 100 MG/5 ML SYR/VIAL ONE; +ceFAZolin 2 GM IV Premixed 50 ML IV ONE; +ceFAZolin 2 GM IV Premixed 50 ML ONE; +fentaNYL INJ 100 MCG/2 ML AMP ONE; +proPOfol 200 MG/20 ML (DIPRIVAN) VIAL IV ONE
[2021-11-24] MEDS: LACTATED RINGERS 1,000 ML IV PRN ×2 (10:00→11:27)
[2021-11-24 10:06] LABS: AMPHETAMINE SCREEN, URINE NEGATIVE (NEGATIVE); BARBITURATE SCREEN URINE NEGATIVE (NEGATIVE); BENZODIAZEPINES SCREEN URINE NEGATIVE (NEGATIVE); CANNABINOID SCREEN, URINE NEGATIVE (NEGATIVE); COCAINE SCREEN URINE NEGATIVE (NEGATIVE); METHADONE STAT NEGATIVE (NEGATIVE); OPIATE SCREEN URINE NEGATIVE (NEGATIVE); OXYCODONE STAT NEGATIVE (NEGATIVE); PROPOXYPHENE STAT NEGATIVE (NEGATIVE); TRICYCLIC ANTIDEPRESSANTS SCRE NEGATIVE (NEGATIVE)
--- NOTE | 2021-11-24 10:19 | Progress Note-Pre Operative ---
Pre-Operative Progress Note H&P Reviewed The H&P was reviewed, patient examined and no changes noted. Time Seen by Provider: 10:14 Date H&P Reviewed: Nov 24, 2021 Time H&P Reviewed: 10:14 Pre-Operative Diagnosis: Left inguinal hernia, site marked ALISSA SHANKS DO Nov 24, 2021 10:19
--- NOTE | 2021-11-24 12:04 | Progress Note-Post Operative ---
Post-Operative Progess Note Surgeon (s)/Business Intern (s) Surgeon ALISSA SHANKS DO Business Intern: ADITI Balbuena Pre-Operative Diagnosis Left inguinal hernia, site marked Post-Operative Diagnosis Left indirect inguinal hernia - incarcerated Left cord lipoma Procedure & Operative Findings Date of Procedure 11/24/21 Procedure Performed/Findings After informed consent was obtained, the patient was brought to the operating room and placed on the operating table in a supine position. He was sterilely prepped and draped in a normal fashion. Local lidocaine was used to infiltrate the skin above the umbilicus. I made an incision with #11 blade, carried down to the skin into subcutaneous tissue and then deepened down the subcutaneous tissue with Bovie electrocautery down to the fascia. Fascia was incised with Bovie electrocautery and bluntly entered the abdomen, swept a finger around, placed 0 Vicryl [id number] suture and placed limited trocar port under direct visualization. Created pneumoperitoneum, able to visualize the hernia and took a picture of this and then placed two 8 mm ports about 10 cm on either side of the midline port using a local lidocaine, 11 blade for stab incision and then advanced the robotic port under direct visualization. There were adhesions on the right side, took these down carefully with scissors in order to easily get right port in place and make sure no issues would be encountered while placing instruments, etc through the right port. Once this was in, I then placed the patient in Trendelenburg and then placed the working instruments, the fenestrated bipolar and the scissors. Looked on the left side and saw a large indirect inguinal hernia. I could not see any hernia defect on the right side. Next, I came across the peritoneum approximately 8 cm away from the hernia defect, going across laterally starting lateral about 17cm and cutting toward the median umbilical ligament. Unfortunately, I cut into a large vessel in the midline (probably e pigastric) able to control bleeding with the fenestrated bipolar. I then carefully dissected the visceral peritoneum away and down and then in the midline, went through the parietal side and dissected down to the pubic tubercle, dissecting this down carefully pushing the peritoneum away, I was able to then visualize the pubic tubercle and Mg's ligament. I went 2 cm posterior and at this point, we then had a critical view of the dissection, able to dissect 2 cm across the midline to the right side, 2 cm posterior to the Mg's ligament, able to then parietalize the vas deferens and spermatic vessels right at the groove between Mg's and iliac vein and able to dissect, make sure there was no peritoneum between those two, able to see the indirect hernia space, took a picture of this, looked at the femoral space (no hernia seen). Then I carefully teased out the hernia sac and could visualize the indirect hernia space. Next I looked on the cord and cord structures. There was a large cord lipoma that I was able to reduce and cut off. This was then removed through the port to get it out of the peritoneal space (at the end of the case). I could clearly see the inguinal canal and the indirect space. Next I carried the posterior lateral dissection all the way out and then placed a 12 x 17 Midwieght Bard 3DMax mesh. It laid in nicely, covered the hernia defect and the rest of the area. It was above the peritoneum, sutured it at the pubic tubercle with a 3-0 Vicryl suture and tied this off. I placed another 3-0 vicryl laterally to hold the mesh down. This appeared to lay in very nicely. I then brought down the pneumoperitoneum to about 8 mmHg and then started closing the peritoneum. Started laterally and used a 2-0 V-lock barbed suture to start a running stitch to close the peritoneum. This was closed nicely, took a picture of the closure at this point, then removed both needles had switched to a suture set key driver from the scissors. The patient was then placed back supine, removed all ports under direct visualization, allowed pneumoperitoneum to escape and then closed the supraumbilical incision, closing the fascia with 0 Vicryl suture previously placed. Copiously irrigated all incisions and then closed the two small 8 mm incisions with two interrupted 4-0 undyed Monocryl subcuticular stitches and closed the supraumbilical incision with three interrupted undyed Monocryl subcuticular stitch. Area was cleaned and dried. Dermabond was placed. The patient tolerated the procedure. The sponge, instrument and needle counts were correct at the end of the case. Anesthesia Type GET Estimated Blood Loss Estimated blood loss (mL): appx 30ml Specimens/Packing Specimens Removed cord lipoma ALISSA SHANKS DO Nov 24, 2021 12:04
--- NOTE | 2021-11-24 12:18 | Discharge Inst-Surgical ---
Discharge Inst-Surgical Depart Medication/Instructions New, Converted or Re-Newed RX: Transmitted to Pharmacy Patient Instructions Follow up Appt: Make appointment for 1 week. [phone] Instructions: No lifting greater than 20 pounds. No strenuous activity. May shower in 24 hours, no tub bath or soaking. Use incentive spirometer at home as directed. No Smoking Skin/Wound Care: May remove bandages in am. You need to leave the Dermabond on incision it will fall off on it's own. Symptoms to Report: Appetite Changes, Extremity Discoloration, Numbness/Tingling, Swelling Increased, Bleeding Excessive, Eyesight Changes, Pain Increased, Urine Color Change, Constipation(Persistent), Fever over 101 degree F, Pain/Pressure in chest, Urinating Difficulty, Cough Up/Vomit Blood, Heart Beat Irreg/Pounding, Pain/Pressure in jaw, Cramps in feet or legs, Lightheadedness, Pain/Pressure in shoulder, Diarrhea(Persistent), Memory Changes Suddenly, Questions/Concerns, Weight gain consecutive days, Dizziness/Fainting, Nausea/Vomiting, Shortness of Breath, Weight gain over 2 pounds If questions or concerns contact your physician Or seek help at emergency department. Activity Activity as Tolerated: Yes Activity Instructions: Avoid Stress to Incision Driving Instructions: No Driving/Refer to Dr. Gibson Discharge Diet: No Restrictions Diet After 24 Hours: Clear Liquid if Nauseous If Any Problems/Questions/Issu: Contact Your Physician, Go to Emergency Room Skin/Wound Care Infection Signs and Symptoms: Increased Redness, Foul Odor of Wound, Increased Drainage, Skin Itchy or Has a Rash, Increased Swelling, Temperature Above 101 F Wound Care Comment: heating pad to shoulder or neck tonight for pain Bathing Instructions: Shower Stitches/[place]/Dermabond Dis: Dermabond Ice Pack: Ice On and Off Site ALISSA SHANKS DO Nov 24, 2021 12:18
--- NOTE | 2021-11-24 12:51 | Anesthesia-General Post-Op ---
General Patient Condition Mental Status/LOC: Same as Preop Cardiovascular: Satisfactory Nausea/Vomiting: Absent Respiratory: Satisfactory Pain: Controlled Complications: Absent Post Op Complications Complications None Follow Up Care/Instructions Patient Instructions None needed. Anesthesia/Patient Condition Patient Condition Patient is doing well, no complaints, stable vital signs, no apparent adverse anesthesia problems. No complications reported per nursing. D/C home per [facility] Criteria: Yes AGAPITO LEMUS CRNA Nov 24, 2021 12:51
== END ==
LOC: SDC 09:35
PROVIDERS: ATTEND Surgery
DX: K40.30 Unilateral inguinal hernia, with obstruction, without gangrene, not specified as recurrent (principal); D17.6 Benign lipomatous neoplasm of spermatic cord
CPT/HCPCS: 49650; 80306; 87081; C1781; 88302